=== PATIENT | male | born 1970 | race Caucasian/White ===

== ENCOUNTER 2022-04-02 09:27 | Day surgery (SDC) | payer MEDICAID, OTHER ==
[~2022-04-02] VITALS: Ht 167.6 cm; Wt 63.0 kg
[2022-04-02 11:29] VITALS: BP 125/77
[2022-04-02 11:42] LABS: BASOPHILS % 0.2 % (0.0-2.0); EOSINOPHILS % 0.4 % (0.0-5.0); HEMATOCRIT. 45.5 % (42.0-52.0); LYMPHOCYTES % 11.8 % (20.0-50.0); MEAN CORPUSCULAR HEMOGLOBIN 31.1 pg (28.0-32.0); MEAN CORPUSCULAR VOLUME 94.3 fL (80.0-94.0); MEAN PLATELET VOLUME 7.9 fl (7.4-10.4); MONOCYTES % 6.5 % (2.0-8.0); NEUTROPHILS % 81.1 % (40.0-76.0); PLATELET 387 x1000/uL (130-400); RED BLOOD CELL COUNT 4.83 mill/uL (4.7-6.1); RED CELL DISTRIBUTION WIDTH 13.3 % (11.6-14.6)
[2022-04-02 11:51] LABS: CHLORIDE 109 mEq/L (98-107); PROTHROMBIN TIME 10.3 sec (9.6-11.0)
[2022-04-02] MEDS ORDERED: FENTANYL CITRATE/PF 50MCG/ML 2ML VIAL ONE (12:50)
[2022-04-02] MEDS ORDERED: PROPOFOL 200MG/20ML VIAL IV ONE (12:50)
[2022-04-02] MEDS ORDERED: MIDAZOLAM HCL 2 MG/2 ML VIAL ONE (12:51)
[2022-04-02] MEDS ORDERED: LIDOCAINE HCL 1% 10 MG/ML 10ML VIAL ONE (12:54)
[2022-04-02] MEDS ORDERED: TRIAMCINOLONE ACETONIDE 40MG/ML 1ML VIAL ONE (13:28)
[2022-04-02] MEDS ORDERED: ONDANSETRON HCL 4MG/2ML INJ IV PRN (13:45)
[2022-04-02] MEDS ORDERED: ACETAMINOPHEN 325MG TABLET PO PRN (13:45)
[2022-04-02] MEDS ORDERED: KETOROLAC 30MG/ML VIAL ONE (14:14)
== END 2022-04-02 15:45 | disposition home or self-care (01) ==
LOC: ER 09:27 → UNDOADMIN 11:43 → MICUSO 11:43 → EDBEDREQ 12:04 → OR 14:20
PROVIDERS: ATTEND Ophthalmology
DX: H40.89 Other specified glaucoma (principal); H40.219 Acute angle-closure glaucoma, unspecified eye; F32.9 Major depressive disorder, single episode, unspecified; Z79.899 Other long term (current) drug therapy; Z98.890 Other specified postprocedural states
CPT/HCPCS: 36415; 66180; 80053; 85025; 85610; 86850; 86900; 86901; 87426; 93005; 99285; J1885; J2250; J2704; J3010; J3301; J3490; C1762; C1783

== ENCOUNTER 2023-01-06 11:47 | Emergency (ER) | payer MEDICAID, OTHER ==
[~2023-01-06] VITALS: Ht 167.6 cm; Wt 68.0 kg
[2023-01-06 11:57] VITALS: BP 146/88; PULSE 79; RESP 16; TEMP 98.8; O2SAT 99
[2023-01-06] MEDS ORDERED: TETRACAINE 0.5% OPHTH DROPS 4ML BOTHEYE ONE (14:15)
[2023-01-06] MEDS ORDERED: FLUORESCEIN SODIUM 1MG/STRIP BOTHEYE ONE (14:15)
[2023-01-06] MEDS ORDERED: ERYTHROMYCIN BASE 0.5% OPHTH OINT 3.5GM BOTHEYE ONE (15:30)
[2023-01-06] MEDS ORDERED: ERYT1OIN6 EACHEYE (15:31)
== END 2023-01-06 15:56 | disposition home or self-care (01) ==
LOC: ER 11:47
DX: H10.023 Other mucopurulent conjunctivitis, bilateral (principal); G61.0 Guillain-Barre syndrome; Z98.890 Other specified postprocedural states
CPT/HCPCS: 99283

== ENCOUNTER 2024-07-27 15:48 | Emergency (ER) | payer MEDICAID ==
[~2024-07-27] VITALS: Ht 170.2 cm; Wt 66.0 kg
[~2024-07-27 15:48] MED LIST: ATOR20TA65 MT; TAMS-54 MT
[2024-07-27 15:52] VITALS: O2SAT 100
[2024-07-27 15:59] VITALS: BP 146/93; PULSE 80; RESP 14; TEMP 36.9; O2SAT 98
[2024-07-27 16:29] LABS: BASOPHILS % 0.5 % (0.0-2.0); HEMOGLOBIN. 15.5 g/dL (14.0-18.0); LYMPHOCYTES % 21.2 % (20.0-50.0); MEAN CORPUSCULAR HEMOGLOBIN 30.5 pg (28.0-32.0); MEAN CORPUSCULAR HGB CONC 32.9 g/dL (31.0-37.0); MEAN CORPUSCULAR VOLUME 92.7 fL (80.0-94.0); MEAN PLATELET VOLUME 9.1 fl (7.4-10.4); MONOCYTES % 8.6 % (2.0-8.0); NEUTROPHILS % 68.7 % (40.0-76.0); PLATELET 231 x1000/uL (130-400); RED BLOOD CELL COUNT 5.07 mill/uL (4.7-6.1); WHITE BLOOD COUNT 6.7 x1000/uL (4.5-11.0)
[2024-07-27 16:38] LABS: CHLORIDE 108 mEq/L (98-107); POTASSIUM 3.8 mEq/L (3.5-5.1); SODIUM 140 mEq/L (136-145)
[2024-07-27 16:39] LABS: CALCIUM 9.2 mg/dL (8.7-10.4); CARBON DIOXIDE 24 mEq/L (21-32)
[2024-07-27 16:44] LABS: CREATININE 0.7 mg/dL (0.6-1.3); GLUCOSE 122 mg/dL (70-105); UREA NITROGEN BLOOD 11 mg/dL (9-23)
[2024-07-27 16:49] LABS: TROPONIN I HIGH SENSITIVITY < 4 ng/L (3.0-53)
== END 2024-07-27 18:07 | disposition home or self-care (01) ==
LOC: ER 15:48
DX: R53.1 Weakness (principal); R06.02 Shortness of breath; E78.00 Pure hypercholesterolemia, unspecified; Z79.899 Other long term (current) drug therapy; Z98.890 Other specified postprocedural states
CPT/HCPCS: 80048; 83880; 85025; 85379; 84484; 36415; 71045; 93005; 99285; Z7610